=== PATIENT | female | born 1970 | race Caucasian/White ===

== ENCOUNTER → 2016-09-28 | Day surgery (SDC) | payer BC ==
[~2016-09-28] MED LIST: COLCHICINE0.6 M1 PO; EFFEXOR XR 75 M75 MG PO; FLOVENT 110 MC7.9 GM INH; HYDROCHLOROTH12.5 MG PO; SINGULAIR10 MG PO; VITAMIN B-121000 MCG PO; VITAMIN D 11000 UNIT PO; VITAMIN E400 UNI4 PO
== END | disposition home or self-care (01) ==
LOC: OR 07:08
PROVIDERS: Internal Medicine Gastroenterology
PROC: 0DB68ZX Excision of Stomach, Via Natural or Artificial Opening Endoscopic, Diagnostic (ICD-10-PCS; principal; 2016-09-28 11:00)
PROC: 0DBE8ZZ Excision of Large Intestine, Via Natural or Artificial Opening Endoscopic (ICD-10-PCS; 2016-09-28 11:00)
DX: K29.70 Gastritis, unspecified, without bleeding (principal); K21.0 Gastro-esophageal reflux disease with esophagitis; K63.5 Polyp of colon; K57.30 Diverticulosis of large intestine without perforation or abscess without bleeding; K64.0 First degree hemorrhoids; F41.9 Anxiety disorder, unspecified; I10 Essential (primary) hypertension; J45.909 Unspecified asthma, uncomplicated; Z80.0 Family history of malignant neoplasm of digestive organs; Z90.49 Acquired absence of other specified parts of digestive tract; Z90.89 Acquired absence of other organs
CPT/HCPCS: 84703; J3010; J7030

== ENCOUNTER → 2020-09-27 | Outpatient (CLI) | payer BC ==
[2020-09-27 09:53] LABS: HEMOGLOBIN 15.3 gm/dl (12.3-15.3); RED BLOOD COUNT 4.79 M/UL (4.00-5.10); WHITE BLOOD COUNT 8.9 K/UL (4.5-11.0)
[2020-09-27 10:22] LABS: BUN/CREATININE RATIO 21 (0-10)
== END ==
LOC: LAB 09:14
PROVIDERS: Nurse Practitioner Family
DX: Z00.00 Encounter for general adult medical examination without abnormal findings (principal); J30.9 Allergic rhinitis, unspecified; R79.89 Other specified abnormal findings of blood chemistry; K21.9 Gastro-esophageal reflux disease without esophagitis; I10 Essential (primary) hypertension; M25.551 Pain in right hip; M25.552 Pain in left hip; E78.5 Hyperlipidemia, unspecified; R73.9 Hyperglycemia, unspecified; R53.83 Other fatigue; E53.8 Deficiency of other specified B group vitamins; E55.9 Vitamin D deficiency, unspecified
CPT/HCPCS: 36415; 80053; 80061; 82607; 84439; 84443; 85025

== ENCOUNTER → 2020-12-31 | Outpatient (CLI) | payer BC | LOC: US 13:40 | DX: R13.10 Dysphagia, unspecified (principal); R59.1 Generalized enlarged lymph nodes; E04.2 Nontoxic multinodular goiter | CPT/HCPCS: 76536 ==

== ENCOUNTER 2021-05-28 09:42 | Emergency (ER) | payer BC ==
[~2021-05-28] VITALS: Ht 162.6 cm; Wt 115.2 kg
[2021-05-28] MEDS ORDERED: ALBUTEROL2.5 MG/3 M INH (12:17)
== END 2021-05-28 13:10 | disposition home or self-care (01) ==
LOC: ER1 09:42
DX: U07.1 COVID-19 (principal); Z23 Encounter for immunization; K21.9 Gastro-esophageal reflux disease without esophagitis; Z90.49 Acquired absence of other specified parts of digestive tract
CPT/HCPCS: 94664; 99282; M0245

== ENCOUNTER → 2022-03-04 | Outpatient (CLI) | payer BC ==
[~2022-03-04] MED LIST changes: +ALBUTEROL2.5 MG/3 M INH
== END ==
LOC: KOH-I 15:46
DX: J84.9 Interstitial pulmonary disease, unspecified (principal); R91.1 Solitary pulmonary nodule
CPT/HCPCS: 71250